=== PATIENT | female | born 1975 | race Caucasian/White ===

== ENCOUNTER 2017-10-28 21:05 | Emergency (ER) | payer OTHER ==
[~2017-10-28] VITALS: Ht 160 cm; Wt 104.3 kg
[~2017-10-28 21:05] MED LIST: ALBUTEROL INHAL17 GM; AMERGE1 MG PO; AMOX TR-K CLV1 EAC4; AMRIX15 MG; AMRIX15 MG PO; AZITHROMYCIN 2250 MG PO; ENJUVIA1.25 MG; ENJUVIA1.25 MG PO; HYDROCODONE; LOPRESSOR100 MG PO; LORTABELXR PO; NARATRIPTAN HC2.5 MG; OMEPRAZOLE20 MG; PREDNISONE 20 M20 MG PO; SIMBICORT INH; SIMVASTATIN40 MG; SINGULAIR 10 MG10 M1; SINGULAIR 10 MG10 M1 PO; SKELAXIN 800 M800 M1; SKELAXIN 800 M800 M1 PO; SYMBICORT160 MCG/4.; TIZANIDINE PO; TOPAMAX 100 MG100 MG PO; TOPAMAX 25 MG T25 M1; TOPROL XL100 MG; VENTOLIN HFA INH8 GM IH; VITAMIN D 5050000 I1 PO
[2017-10-28] MEDS ORDERED: IMITREX100 MG PO ×2 (21:24→21:40)
[2017-10-28] MEDS ORDERED: NEXIUM 40 MG CA40 M1 PO (21:39)
[2017-10-28] MEDS ORDERED: ENJUVIA PO (21:41)
[2017-10-28] MEDS ORDERED: HYDROCODONE-AP1 EAC6 PO (22:13)
[2017-10-28 22:36] VITALS: BP 158/94
== END 2017-10-28 22:37 | disposition home or self-care (01) ==
LOC: ER 21:05
DX: S82.402A Unspecified fracture of shaft of left fibula, initial encounter for closed fracture (principal); S82.002A Unspecified fracture of left patella, initial encounter for closed fracture; G43.909 Migraine, unspecified, not intractable, without status migrainosus; J45.909 Unspecified asthma, uncomplicated; Z88.8 Allergy status to other drugs, medicaments and biological substances; W01.0XXA Fall on same level from slipping, tripping and stumbling without subsequent striking against object, initial encounter; Y93.89 Activity, other specified; Y92.89 Other specified places as the place of occurrence of the external cause; Y99.8 Other external cause status

== ENCOUNTER 2018-11-28 15:56 | Emergency (ER) | payer OTHER ==
[~2018-11-28] VITALS: Ht 160 cm; Wt 111.1 kg
[~2018-11-28 15:56] MED LIST changes: +ENJUVIA PO; +HYDROCODONE-AP1 EAC6 PO; +IMITREX100 MG PO; +NEXIUM 40 MG CA40 M1 PO
[2018-11-28 16:27] LABS: ABSOLUTE NEUTROPHILS 4.7 thou/uL (1.4-8.2); BASOPHILS 0.8 % (0.0-2.0); EOSINOPHILS 2.6 % (0.0-3.0); HEMATOCRIT 36.3 % (37.0-47.0); HEMOGLOBIN 12.4 gm/dL (12.0-15.0); LYMPHOCYTES 20.6 % (24.0-44.0); MCH 29.6 pg (26.0-34.0); MCHC 34.1 g/dL (28.0-37.0); MCV 86.9 fL (80.0-100.0); MONOCYTES 9.9 % (1.0-8.0); PLATELET COUNT 165 thou/uL (150-400); POLYS 66.1 % (36.0-66.0); RBC 4.18 mil/uL (4.20-5.00); RDW 12.6 % (10.5-14.5); WBC 7.2 thou/uL (4.0-11.0)
[2018-11-28 16:31] LABS: CALCIUM 9.1 mg/dL (8.5-10.1); CREATININE 0.7 mg/dL (0.6-1.0); POTASSIUM 3.7 mmol/L (3.5-5.1)
[2018-11-28] MEDS ORDERED: ZPAK PO (17:37)
[2018-11-28] MEDS ORDERED: VENTOLIN HFA INH8 GM INH (17:37)
[2018-11-28] MEDS ORDERED: PREDNISONE 20 M20 MG PO (17:37)
[2018-11-28 18:01] VITALS: BP 164/78
== END 2018-11-28 18:02 | disposition home or self-care (01) ==
LOC: ER 15:56
PROVIDERS: Emergency Medicine
DX: J22 Unspecified acute lower respiratory infection (principal); J45.909 Unspecified asthma, uncomplicated; G43.909 Migraine, unspecified, not intractable, without status migrainosus; Z88.8 Allergy status to other drugs, medicaments and biological substances

== ENCOUNTER 2019-10-02 09:34 | Emergency (ER) | payer OTHER ==
[~2019-10-02] VITALS: Ht 160 cm; Wt 110.2 kg
[~2019-10-02 09:34] MED LIST changes: +VENTOLIN HFA INH8 GM INH; +ZPAK PO
[2019-10-02] MEDS ORDERED: RIZATRIPTAN10 MG PO (10:01)
[2019-10-02] MEDS ORDERED: EMGALITY120 MG/1 M (10:02)
[2019-10-02] MEDS ORDERED: COZAAR 25 MG TA25 M1 PO (10:02)
[2019-10-02] MEDS ORDERED: LEXAPRO 10 MG T10 M2 PO (10:03)
[2019-10-02] MEDS ORDERED: MINIVELLE1 EAC1 PO (10:03)
[2019-10-02] MEDS ORDERED: MELOXICAM7.5 MG PO (10:04)
[2019-10-02 10:27] LABS: ABSOLUTE NEUTROPHILS 6.8 thou/uL (1.4-8.2); EOSINOPHILS 1.6 % (0.0-3.0); HEMATOCRIT 38.6 % (37.0-47.0); HEMOGLOBIN 12.8 gm/dL (12.0-15.0); MCH 29.2 pg (26.0-34.0); MCHC 33.2 g/dL (28.0-37.0); MCV 88.1 fL (80.0-100.0); MONOCYTES 5.7 % (1.0-8.0); PLATELET COUNT 191 thou/uL (150-400); POLYS 73.7 % (36.0-66.0); RBC 4.38 mil/uL (4.20-5.00); RDW 12.8 % (10.5-14.5); WBC 9.3 thou/uL (4.0-11.0)
[2019-10-02 10:34] LABS: CALCIUM 9.1 mg/dL (8.5-10.1); CREATININE 0.7 mg/dL (0.6-1.0); POTASSIUM 4.2 mmol/L (3.5-5.1)
[2019-10-02 14:04] VITALS: BP 123/72
== END 2019-10-02 14:05 | disposition home or self-care (01) ==
LOC: ER 09:34
PROVIDERS: Emergency Medicine
DX: S20.219A Contusion of unspecified front wall of thorax, initial encounter (principal); S80.811A Abrasion, right lower leg, initial encounter; G43.909 Migraine, unspecified, not intractable, without status migrainosus; J45.909 Unspecified asthma, uncomplicated; Z88.6 Allergy status to analgesic agent; Z88.1 Allergy status to other antibiotic agents; Z88.8 Allergy status to other drugs, medicaments and biological substances; V89.0XXA Person injured in unspecified motor-vehicle accident, nontraffic, initial encounter; Y93.89 Activity, other specified; Y92.89 Other specified places as the place of occurrence of the external cause; Y99.8 Other external cause status

== ENCOUNTER → 2019-11-08 | Outpatient (CLI) | payer OTHER ==
[~2019-11-08] MED LIST changes: +COZAAR 25 MG TA25 M1 PO; +EMGALITY120 MG/1 M; +LEXAPRO 10 MG T10 M2 PO; +MELOXICAM7.5 MG PO; +MINIVELLE1 EAC1 PO; +RIZATRIPTAN10 MG PO
== END ==
LOC: RAD 11:52
DX: M25.774 Osteophyte, right foot (principal); M19.071 Primary osteoarthritis, right ankle and foot; M77.31 Calcaneal spur, right foot

== ENCOUNTER → 2020-10-01 | Outpatient (CLI) | payer OTHER | LOC: MRI 14:16 | PROVIDERS: ATTEND Nurse Practitioner | DX: M51.16 Intervertebral disc disorders with radiculopathy, lumbar region (principal) ==